=== PATIENT | male | born 1955 | race Caucasian/White ===

== ENCOUNTER 2021-02-05 08:01 | Day surgery (SDC) | payer OTHER, MEDICAID ==
[~2021-02-05] VITALS: Ht 180.3 cm; Wt 94.3 kg
[~2021-02-05 08:01] MED LIST: AML5T PO; ASPI81CH59 PO; ATOR10TA52 PO; GLIP5TAB12 PO; LISI-711 PO; METF-372 PO; PIO30T GT
[2021-02-05] MEDS ORDERED: LIDOCAINE 2%HCL (LOCAL ANESTH.) INJ 20ML MDV ONE (09:05)
[2021-02-05] MEDS ORDERED: IODIXANOL 320MG/ML 100ML BTL IV ONE (09:05)
[2021-02-05] MEDS ORDERED: MIDAZOLAM HCL 2MG/2ML 2ml VIAL (1mg/ml) ONE (09:09)
[2021-02-05] MEDS ORDERED: fentaNYL CITRATE 100 MCG/2 ML VL ONE (09:09)
[2021-02-05] MEDS ORDERED: SODIUM CHL 0.9% 50 ML ONE (09:09)
[2021-02-05] MEDS ORDERED: ANGIOMAX 250 MG VIAL IV ONE (09:09)
[2021-02-05] MEDS ORDERED: HYDROmorphone HCL 2 MG/ML VL ONE (10:19)
[2021-02-05] MEDS ORDERED: HYDROcodone-ACET 5/325MG TAB PO PRN (11:00)
[2021-02-05] MEDS ORDERED: ONDANSETRON HCL 4 MG/2 ML VIAL IV PRN (11:00)
[2021-02-05] MEDS ORDERED: ACETAMINOPHEN 500 MG TAB PO PRN (11:00)
== END 2021-02-05 14:29 | disposition home or self-care (01) ==
LOC: CATH 08:01
PROVIDERS: ATTEND Internal Medicine
DX: I70.212 Atherosclerosis of native arteries of extremities with intermittent claudication, left leg (principal); I10 Essential (primary) hypertension; E78.5 Hyperlipidemia, unspecified; F17.210 Nicotine dependence, cigarettes, uncomplicated; E11.9 Type 2 diabetes mellitus without complications; Z79.82 Long term (current) use of aspirin; Z20.822 Contact with and (suspected) exposure to COVID-19; Z98.890 Other specified postprocedural states; Z79.899 Other long term (current) drug therapy; Z68.29 Body mass index [BMI] 29.0-29.9, adult
CPT/HCPCS: 37228; 75716; C1725; C1760; C1769; C1887; C1894; J0583; J1170; J1644; J2250; J3010; J7030; Q9967; U0003; 99152; 99153

== ENCOUNTER 2022-05-27 07:41 | Day surgery (SDC) | payer OTHER, MEDICAID ==
[~2022-05-27] VITALS: Ht 180.3 cm; Wt 94.3 kg
[~2022-05-27 07:41] MED LIST changes: +ASPI-543 PO; -ASPI81CH59 PO; +EMPA1TAB3 PO; +FURO20TA3 PO; +GABA300C10 PO; -PIO30T GT; +PIO30T PO; +RIVA2.5T PO
[2022-05-27] MEDS ORDERED: MIDAZOLAM HCL 2MG/2ML 2ml VIAL (1mg/ml) IV ONE (08:15)
[2022-05-27] MEDS ORDERED: fentaNYL CITRATE 100 MCG/2 ML VL IV ONE (08:15)
[2022-05-27] MEDS ORDERED: LIDOCAINE VISCOUS 2% 15ML UD MT ONE (08:15)
[2022-05-27 09:14] VITALS: BP 102/59
[2022-05-27 09:29] VITALS: BP 91/47
[2022-05-27 09:44] VITALS: BP 106/58
[2022-05-27 09:59] VITALS: BP 101/59
[2022-05-27 10:10] VITALS: BP 104/67
== END 2022-05-27 10:15 | disposition home or self-care (01) ==
LOC: CATH 07:41
PROVIDERS: ATTEND Internal Medicine
DX: I35.0 Nonrheumatic aortic (valve) stenosis (principal); R01.1 Cardiac murmur, unspecified; I51.89 Other ill-defined heart diseases; Z20.822 Contact with and (suspected) exposure to COVID-19
CPT/HCPCS: 93005; 93312; J2250; J3010; U0003; 99152

== ENCOUNTER 2022-07-27 01:59 | Emergency (ER) | payer OTHER, MEDICAID ==
[~2022-07-27] VITALS: Ht 180.3 cm; Wt 95.0 kg
[2022-07-27 02:13] VITALS: BP 120/65
[2022-07-27 02:59] LABS: Basophils # (auto) 0 10 ^3/uL (0-0.2); Basophils % (auto) 0.2 % (0.0-2.0); Eosinophils # (auto) 0.1 10 ^3/uL (0-0.8); Eosinophils % (auto) 1.4 % (0.0-7.0); Hematocrit 29.2 % (41.0-53.0); Hemoglobin 9.9 g/dL (13.5-17.5); Lymphocytes % (auto) 30.1 % (10.0-50.0); Mean Corpuscular Hemoglobin 31.1 pg (28.0-32.0); Mean Corpuscular Volume 91.7 fL (80.0-100.0); Monocytes # (auto) 0.4 10 ^3/uL (0-1.3); Monocytes % (auto) 6.6 % (0.0-12.0); Neutrophils # (auto) 4.1 10 ^3/uL (1.6-8.6); Neutrophils % (auto) 61.7 % (37.0-80.0); Nucleated Red Blood Cells % 0.1 %; Red Blood Cells 3.18 10^6/uL (4.5-5.90); Red Cell Distribution Width 13.4 % (11.8-14.3); White Blood Cell 6.7 10^3/uL (4.4-10.8)
[2022-07-27] MEDS ORDERED: LIDOCAINE W/ EPINEPHRINE 2% INJ 20ML VIAL IJ ONE (03:00)
[2022-07-27 03:17] LABS: Albumin 2.4 g/dL (3.4-5.0); Calcium 6.8 mg/dL (8.5-10.1); Potassium 3.3 mmol/L (3.5-5.1)
[2022-07-27 03:18] LABS: BUN/Creatinine Ratio 27.5
[2022-07-27 03:21] LABS: Bilirubin, Total 0.2 mg/dL (0.2-1.0); Total Protein 4.9 g/dL (6.4-8.2)
[2022-07-27] MEDS ORDERED: cefTRIAXone SOD 1,000 MG VL IM ONE (04:45)
[2022-07-27] MEDS ORDERED: POTASSIUM EFFERVESENT TAB 25 MEQ PO ONE (04:45)
== END 2022-07-27 06:43 | disposition home or self-care (01) ==
LOC: ER 01:59 → EDBD 01:59 → ER 05:30
DX: I83.891 Varicose veins of right lower extremity with other complications (principal); E87.6 Hypokalemia; E86.0 Dehydration; R79.89 Other specified abnormal findings of blood chemistry; Z20.822 Contact with and (suspected) exposure to COVID-19
CPT/HCPCS: 36415; 80053; 85025; 86850; 86900; 86901; 96372; 99283; J0696

== ENCOUNTER 2024-10-13 22:02 | Inpatient (IN) | payer OTHER, MEDICAID ==
[~2024-10-13] VITALS: Ht 180.3 cm; Wt 92.6 kg
[~2024-10-13 22:02] MED LIST changes: +GABA-1250 PO; -GABA300C10 PO; -GLIP5TAB12 PO; +GLIP5TAB21 PO; +TRAM-297 PO
[2024-10-13 23:23] LABS: Urine Bacteria None Seen /hpf (None Seen)
[2024-10-13 23:42] LABS: Urine Blood Negative /uL (Negative); Urine Clarity Clear (Clear); Urine Color Yellow (Yellow); Urine Hyaline Cast FEW /lpf (0 - 2); Urine Protein, UAD TRACE (Negative); Urine Specific Gravity 1.032 (1.001-1.035); Urine Squamous Epithelial Cell None Seen /hpf (<5); Urine Urobilinogen Normal (Negative); Urine WBC < 1 /HPF (0-3); Urine pH 5.5 (5.0-9.0)
[2024-10-13 23:46] LABS: Basophils # (auto) 0 10 ^3/uL (0-0.2); Basophils % (auto) 0.1 % (0.0-2.0); Eosinophils # (auto) 0 10 ^3/uL (0-0.8); Eosinophils % (auto) 0.4 % (0.0-7.0); Hematocrit 44.3 % (41.0-53.0); Hemoglobin 15.1 g/dL (13.5-17.5); Lymphocytes # (auto) 0.9 10 ^3/uL (0.4-5.4); Lymphocytes % (auto) 11.7 % (10.0-50.0); Mean Corpuscular Hemoglobin 31.3 pg (28.0-32.0); Mean Corpuscular Hgb Conc. 34.1 g/dL (32.0-36.0); Mean Corpuscular Volume 91.6 fL (80.0-100.0); Monocytes # (auto) 0.5 10 ^3/uL (0-1.3); Monocytes % (auto) 5.7 % (0.0-12.0); Neutrophils # (auto) 6.7 10 ^3/uL (1.6-8.6); Neutrophils % (auto) 82.1 % (37.0-80.0); Nucleated Red Blood Cells % 0.1 %; Platelet Count (auto) 196 10^3/uL (140-450); Red Blood Cells 4.83 10^6/uL (4.5-5.90); Red Cell Distribution Width 13.9 % (11.8-14.3); White Blood Cell 8.1 10^3/uL (4.4-10.8)
--- NOTE | 2024-10-13 23:50 | DVH ---
CHEST RADIOGRAPH REASON FOR EXAM: epigastric pain COMPARISON: None TECHNIQUE: One view of the chest is provided FINDINGS: The cardiomediastinal silhouette is within normal limits for technique. There is no focal a irspace disease. There is no significant pleural effusion. No acute bony abnormality is identified. IMPRESSION: No radiographic evidence of acute cardiopulmonary process.
[2024-10-14 00:01] LABS: Alanine Aminotransferase 15 U/L (7-40); Alkaline Phosphatase 97 U/L (46-116); Anion Gap 7 (5-15); Aspartate Aminotransferase 15 U/L (13-40); BUN/Creatinine Ratio 12.7 (10.0-20.0); Blood Urea Nitrogen 19 mg/dL (9-23); Carbon Dioxide 28 mmol/L (20-31); Chloride 102 mmol/L (98-107); Sodium 137 mmol/L (136-145)
[2024-10-14 00:02] LABS: Albumin 5.2 g/dL (3.2-4.8); Bilirubin, Total 0.4 mg/dL (0.2-1.0); Calcium 10.4 mg/dL (8.7-10.4); Glucose 129 mg/dL (74-106); Potassium 5.3 mmol/L (3.5-5.1); Total Protein 8.4 g/dL (5.7-8.2)
--- NOTE | 2024-10-14 00:15 | DVH ---
Exam: CT CT AB PEL WO CON-NO ORAL OR IV History: abdominal pain Comparison Study: None Technique: Multidetector spiral CT of the abdomen was performed from lung bases to pubic symphysis. I maging was performed without IV contrast. Axial, coronal and sagittal multiplanar reformats were obta ined from the axial data set by the technologist. Radiation Dose : 1. Abdomen/Pelvis: CTDIvol 17 mGy, DLP 986 mGy*cm. Findings: Evaluation of solid organs is limited due to lack of intravenous contrast use. Lung Bases: No acute or significant lung base finding. Normal heart size. No pleural or pericardial effusion. Liver: The liver is normal in size. No focal lesions. Gallbladder and Biliary Tree: Unremarkable Spleen: Unremarkable Pancreas: The pancreas is grossly normal in appearance. Adrenal Glands: Unremarkable Kidneys: Kidneys are grossly normal without calculi or hydronephrosis. Bladder: Grossly unremarkable for degree of distention. Bowel: The stomach is grossly normal in appearance. Small bowel and colon are normal in caliber and d istribution. The appendix is not visualized; however, no secondary findings of acute appendicitis fabiola ntified. Severe sigmoid diverticulosis without evidence of diverticulitis. Ascites: Absent Lymphadenopathy: No mesenteric, retroperitoneal or periportal lymphadenopathy. Abdominal Wall and Mesentery: Unremarkable. Vasculature: The visualized abdominal aorta is normal in size and caliber. Evaluation of abdominal a nd pelvic vessels is limited due to lack of intravenous contrast. Pelvic Organs: Mild prostatomegaly. Musculoskeletal: No aggressive focal bony lesions, acute fractures or dislocation. IMPRESSION: No acute abdominal or pelvic findings on this noncontrast evaluation. Sigmoid colon diverticulosis wi thout evidence of diverticulitis. Multiple nondistended fluid-filled loops of small bowel which are n onspecific but can be seen with viral enteritis. END IMPRESSION:
--- NOTE | 2024-10-14 00:24 | ED.PDOC ---
History of Present Illness HPI Comments See 9-year-old man presents with 2 days of diffuse abdominal pain associated with nausea vomiting and generally feeling unwell. Patient reports his pain is 6/10 achy in nature and not associated with eating. Patient did have a watery bowel movement this morning. Chief Complaint: Abdominal Pain Time Seen by MD: 22:17 Allergies: Coded Allergies: NO KNOWN ALLERGIES (Unverified , 05/24/22) Home Meds Active Scripts Tramadol Hcl (Ultram) 50 Mg Tab, 1 TAB PO BID, #20 TAB Prov:JULIO CESAR YOUSSEF 11/24/21 Reported Medications Pioglitazone Hydrochloride (ACTOS TABLET) 30 Mg Tb, 15 MG PO for DIABETES, TAB 05/24/22 Furosemide (Furosemide) 20 Mg Tab, 20 MG PO DAILY for EDEMA, MG 05/24/22 Gabapentin (Gabapentin) 300 Mg Cap, 300 MG PO HS for NEUROPATHY, MG 05/24/22 Empagliflozin (Jardiance) 25 Mg Tab, 25 MG PO DAILY for DIABETES, TAB 05/24/22 Aspirin (Aspir-Low) 81 Mg Tab, 81 MG PO DAILY for PVD, MG 05/24/22 Rivaroxaban (Xarelto) 2.5 Mg Tab, 2.5 MG PO BID for PVD, TAB 05/24/22 Amlodipine Besylate (NORVASC TABLET) 5 Mg Tb, 1 TAB PO DAILY, TAB 02/02/21 Lisinopril (Zestril) 20 Mg Tab, 10 MG PO DAILY, TAB 02/02/21 Atorvastatin Calcium (ATORVASTATIN CALCIUM) 10 Mg Tab, 10 MG PO DAILY, TAB 02/02/21 Glipizide (Glipizide) 5 Mg Tab, 1 TAB PO BID, TAB 02/02/21 Metformin Hydrochloride (Metformin Hcl) 1,000 Mg Tab, 1000 MG PO BID, TAB 02/02/21 Mode of Arrival: Ambulatory Past Medical History PAST MEDICAL HISTORY: AFIB, DM Surgical History: Denies all surgeries Family History Family History: Unknown Social History Smoker: Quit Less Than 1 Year, Cigarettes Alcohol: Occasionally Drugs: Denies Drug Use All Other Systems: Reviewed and Negative Physical Exam General Appearance: Normal HEENT: Pharynx Normal Neck: Normal Inspection Respiratory: No Respiratory Distress Cardiovascular: No Edema Breast Exam: Normal Gastrointestinal: Non Tender Genitalia: Deferred Pelvic: Deferred Rectal: Deferred Extremities: No pedal edema Neurologic: No Motor Deficits Cerebellar Function: NOT DONE Reflexes: NOT DONE Skin: Normal Color Lymphatic: NOT DONE Was a procedure done? Was a procedure done?: No Differential Dx Considerations may include: Gastroenteritis, colitis, enteritis, appendicitis, cholecystitis X-Ray, Labs, Meds, VS Vital Signs Date Time Temp Pulse Resp B/P (MAP) Pulse Ox O2 Delivery O2 Flow Rate FiO2 10/13/24 23:03 97.3 65 16 140/61 (87) 98 97.3 Lab Test 10/13/24 23:34 10/13/24 23:20 Range/Units White Blood Count 8.1 4.4-10.8 10^3/uL Red Blood Count 4.83 4.5-5.90 10^6/uL Hemoglobin 15.1 13.5-17.5 g/dL Hematocrit 44.3 41.0-53.0 % Mean Corpuscular Volume 91.6 80.0-100.0 fL Mean Corpuscular Hemoglobin 31.3 28.0-32.0 pg Mean Corpuscular Hemoglobin Concent 34.1 32.0-36.0 g/dL Red Cell Distribution Width 13.9 11.8-14.3 % Platelet Count 196 140-450 10^3/uL Mean Platelet Volume 8.7 6.9-10.8 fL Neutrophils (%) (Auto) 82.1 H 37.0-80.0 % Lymphocytes (%) (Auto) 11.7 10.0-50.0 % Monocytes (%) (Auto) 5.7 0.0-12.0 % Eosinophils (%) (Auto) 0.4 0.0-7.0 % Basophils (%) (Auto) 0.1 0.0-2.0 % Neutrophils # (Auto) 6.7 1.6-8.6 10 ^3/uL Lymphocytes # (Auto) 0.9 0.4-5.4 10 ^3/uL Monocytes # (Auto) 0.5 0-1.3 10 ^3/uL Eosinophils # (Auto) 0 0-0.8 10 ^3/uL Basophils # (Auto) 0 0-0.2 10 ^3/uL Nucleated Red Blood Cells 0.1 % Sodium Level 137 136-145 mmol/L Potassium Level 5.3 H 3.5-5.1 mmol/L Chloride Level 102 98-107 mmol/L Carbon Dioxide Level 28 20-31 mmol/L Anion Gap 7 5-15 Blood Urea Nitrogen 19 9-23 mg/dL Creatinine 1.50 H 0.700-1.30 mg/dL Glomerular Filtration Rate Calc 50 >90 mL/min BUN/Creatinine Ratio 12.7 10.0-20.0 Serum Glucose 129 H 74-106 mg/dL Calcium Level 10.4 8.7-10.4 mg/dL Total Bilirubin 0.4 0.2-1.0 mg/dL Aspartate Amino Transferase (AST) 15 13-40 U/L Alanine Aminotransferase (ALT) 15 7-40 U/L Alkaline Phosphatase 97 46-116 U/L Troponin I High Sensitivity 5 </=54 ng/L Total Protein 8.4 H 5.7-8.2 g/dL Albumin 5.2 H 3.2-4.8 g/dL Urine Color Yellow Yellow Urine Clarity Clear Clear Urine pH 5.5 5.0-9.0 Urine Specific [place] 1.032 1.001-1.035 Urine Protein Trace H Negative Urine Ketones Negative Negative Urine Blood Negative Negative /uL Urine Nitrite Negative Negative Urine Bilirubin Negative Negative Urine Urobilinogen Normal Negative mg/dL Urine Leukocyte Esterase Negative Negative /uL Urine RBC <1 0 - 3 /hpf Urine Microscopic WBC < 1 0-3 /HPF Urine Squamous Epithelial Cells None seen <5 /hpf Urine Bacteria None seen None Seen /hpf Urine Hyaline Casts Few 0 - 2 /lpf Urine Glucose 4+ H Normal mg/dL Time of 1ST Reevaluation: 00:23 Reevaluation 1ST: Improved Patient Education/Counseling: Diagnosis, Treatment Family Education/Counseling: No Family Present Departure 1 Departure Time of Disposition: 00:23 (Patient presented with abdominal pain that was concerning for possible appendicits, gastritis, cholecystitis, colitis, gastroenteritis, sbo, or orther possible surgical emergency. Data: 1. I ordered and reviewed the result of at least 3 labs including a CBC, BMP, and Urinalysis. 2. I independently interpreted the following tests: CT Abdoment and Pelvis is concerning for colitis .Risk:This patient has a high risk of morbidity due to further diagnostic testing or treatment and may suffer from an acute abdominal process disorder. Workup reveals likely enteritis and patient should be admitted for further workup. and possible expert consultation. ) Impression: Primary Impression: Enteritis Additional Impression: Intractable abdominal pain Disposition: 09 ADMITTED INPATIENT Admit to: Med Surg Condition: Serious Critical Care Note Critical Care Time?: Yes Critical care comment: Intractable abdominal pain Authorized and Performed by: Negar Perez MD Total critical care time: Approximately 34 minutes Due to a high probability of clinically significant, life threatening deterioration, the patient required my highest level of preparedness to intervene emergently and I personally spent this critical care time directly and personally managing the patient. This critical care time included obtaining a history; examining the patient; pulse oximetry; ordering and review of studies; arranging urgent treatment with development of a management plan; evaluation of patient's response to treatment; frequent reassessment; and, discussions with other providers. This critical care time was performed to assess and manage the high probability of imminent, life-threatening deterioration that could result in multi-organ failure. It was exclusive of separately billable procedures and treating other patients and teaching time. Please see my other sections and the rest of the note for further information on patient assessment and treatment. Stability Stability form required: No Heart Score Heart Score: Heart Score Response (Comments) Value History N/A 0 EKG N/A 0 Age N/A 0 Risk Factors N/A 0 Troponin N/A 0 Total 0 NEGAR PEREZ MD Oct 14, 2024 00:24
[2024-10-14] MEDS: SODIUM CHLORIDE 0.9% 1,000 ML IV ONE (00:30)
[2024-10-14] MEDS: SODIUM CHLORIDE 0.9% 1,000 ML IV SCH (01:15)
[2024-10-14] MEDS: InsuLIN REG 1unit/0.01ml Soln (100units/ml) IV ONE (01:15)
[2024-10-14] MEDS ORDERED: ACETAMINOPHEN 325 MG TAB PO PRN (01:15)
--- NOTE | 2024-10-14 01:32 | DVHHPRES ---
History of Present Illness Resident Creating Document: LAYTON TERRELL History of Present Illness This is a 69-year-old male with past medical history of type 2 diabetes mellitus, hypertension, TAVR 4 months ago, dyslipidemia who presented to the ED with chief complaint of abdominal tenderness. The patient states that has been having abdominal pain for the last week associated with nausea and diarrhea (last episode two days ago). The patient describes a dull periumbilical pain localized in the periumbilical and epigastric region with no specific pattern of radiation. The patient is currently rates the pain as a 5/10 on the pain scale that varies in intensity. The patient also reported seeing minimal blood in the stools three weeks ago. The patient denies chest pain, shortness of breath, fever/chills or any other associated symptoms. Initial labs showed mild hyperkalemia, creatinine was elevated at 1.58 and BUN 19. Urinalysis came back negative and CT scan of the abdomen showed possible viral enteritis. We will start the patient on IV fluids, sliding scale insulin, treatment for hyperkalemia and we will admit the patient for further assessment and management. Past medical history: Type 2 diabetes mellitus, hypertension, TAVR four months ago, dyslipidemia Home medications: Lisinopril 20 mg daily, amlodipine 5 mg daily, aspirin 81 mg daily gabapentin 300 mg daily, Plavix 75 mg daily, pioglitazone 30 mg daily, glipizide 5 mg daily, Jardiance 25 mg daily, metformin 1000 mg b.i.d., Prozac 10 mg daily. Social history: Reports quitting smoking long time ago, occasional alcohol and denies drug consumption Surgical history: TAVR 4 months ago Cardiovascular: HTN, hyperipidemia, Other (TAVR four months ago) Endocrine: Diabetes Past Surgical History: Other (TAVR) Family History: None Smoke: Quit ALCOHOL: none Drugs: None Lives: with Family Domestic Violence: Neg Review of Systems Constitutional: No: Fever, Chills, Sweats, Weakness, Malaise, Other Eyes: No: Pain, Vision change, Conjunctivae inflammation, Eyelid inflammation, Other, Redness ENT: No: Ear pain, Ear discharge, Nose pain, Nose discharge, Nose congestion, Mouth pain, Mouth swelling, Throat pain, Throat swelling, Other Respiratory: No: Cough, Dry, Shortness of breath, SOB with excertion, Wheezing, Hemoptysis, Pleuritic Pain, Sputum, Wheezing, Other Cardiovascular: No: Chest Pain, Palpitations, Orthopnea, Paroxysmal Noc. Dys pnea, Edema, Lt Headedness, Other Gastrointestinal: Nausea, Abdominal Pain; No: Vomiting, Diarrhea, Constipation, Melena, Hematochezia, Other Genitourinary: No Dysuria, No Frequency, No Incontinence, No Hematuria, No Retention, No Other Musculoskeletal: No: other, neck pain, shoulder pain, arm pain, back pain, hand pain, leg pain, foot pain Skin: No: Rash, Lesions, Jaundice, Bruising, Other Neurological: No: Weakness, Numbness, Incoordination, Change in speech, Confusion, Seizures, Other Allergies: Coded Allergies: NO KNOWN ALLERGIES (Unverified , 05/24/22) Medications Current Medications Medications Dose Ordered Sig/Rajat Route Start Time Stop Time Status Last Admin Dose Admin Sodium Chloride 1,000 ml @ 60 mls/hr [id number] IV 10/14/24 01:15 UNV Acetaminophen 650 mg Q6HP PRN PO 10/14/24 01:15 UNV Enoxaparin Sodium 40 mg DAILY SC 10/14/24 10:00 UNV Diagnostic Test (Pha) 1 strip ACHS 10/14/24 07:00 UNV Insulin Human Regular ACHS SC 10/14/24 07:00 UNV Dextrose 50 ml UD PRN IV 10/14/24 01:15 UNV Exam Vital Signs Vital Signs Date Time Temp Pulse Resp B/P (MAP) Pulse Ox O2 Delivery O2 Flow Rate FiO2 10/13/24 23:03 97.3 65 16 140/61 (87) 98 97.3 General Appearance: Alert, Oriented X3, Cooperative, No acute distress HEENT: Atraumatic, PERRLA, EOMI, Mucous membr. moist/pink Respiratory: Clear to auscultation, Normal air movement Cardiovascular: Regular rate, Normal S1, Normal S2, No murmurs Abdominal: Normal bowel sounds, Soft, Other (THERE IS TENDERNESS TO PALPATION AT THE PERIUMBILICAL AND EPIGASTRIC REGION) Extremities: No clubbing, No cyanosis, No edema, Normal pulses, Other (There is blackish discoloration of bilateral lower extremities with a associated scales and dry skin.) Skin: No rashes (There is blackish discoloration of bilateral lower extremities with a associated scales and dry skin.) Neuro: Normal gait, Normal speech, Strength at 5/5 X4 ext, Normal tone, Sensation intact, Cranial nerves 3-12 NL, Reflexes 2+ Psych/Mental Status: Mental status NL, Mood NL Labs/Xrays Labs Test 10/13/24 23:34 10/13/24 23:20 Range/Units White Blood Count 8.1 4.4-10.8 10^3/uL Red Blood Count 4.83 4.5-5.90 10^6/uL Hemoglobin 15.1 13.5-17.5 g/dL Hematocrit 44.3 41.0-53.0 % Mean Corpuscular Volume 91.6 80.0-100.0 fL Mean Corpuscular Hemoglobin 31.3 28.0-32.0 pg Mean Corpuscular Hemoglobin Concent 34.1 32.0-36.0 g/dL Red Cell Distribution Width 13.9 11.8-14.3 % Platelet Count 196 140-450 10^3/uL Mean Platelet Volume 8.7 6.9-10.8 fL Neutrophils (%) (Auto) 82.1 H 37.0-80.0 % Lymphocytes (%) (Auto) 11.7 10.0-50.0 % Monocytes (%) (Auto) 5.7 0.0-12.0 % Eosinophils (%) (Auto) 0.4 0.0-7.0 % Basophils (%) (Auto) 0.1 0.0-2.0 % Neutrophils # (Auto) 6.7 1.6-8.6 10 ^3/uL Lymphocytes # (Auto) 0.9 0.4-5.4 10 ^3/uL Monocytes # (Auto) 0.5 0-1.3 10 ^3/uL Eosinophils # (Auto) 0 0-0.8 10 ^3/uL Basophils # (Auto) 0 0-0.2 10 ^3/uL Nucleated Red Blood Cells 0.1 % Sodium Level 137 136-145 mmol/L Potassium Level 5.3 H 3.5-5.1 mmol/L Chloride Level 102 98-107 mmol/L Carbon Dioxide Level 28 20-31 mmol/L Anion Gap 7 5-15 Blood Urea Nitrogen 19 9-23 mg/dL Creatinine 1.50 H 0.700-1.30 mg/dL Glomerular Filtration Rate Calc 50 >90 mL/min BUN/Creatinine Ratio 12.7 10.0-20.0 Serum Glucose 129 H 74-106 mg/dL Calcium Level 10.4 8.7-10.4 mg/dL Total Bilirubin 0.4 0.2-1.0 mg/dL Aspartate Amino Transferase (AST) 15 13-40 U/L Alanine Aminotransferase (ALT) 15 7-40 U/L Alkaline Phosphatase 97 46-116 U/L Troponin I High Sensitivity 5 </=54 ng/L Total Protein 8.4 H 5.7-8.2 g/dL Albumin 5.2 H 3.2-4.8 g/dL Urine Color Yellow Yellow Urine Clarity Clear Clear Urine pH 5.5 5.0-9.0 Urine Specific [place] 1.032 1.001-1.035 Urine Protein Trace H Negative Urine Ketones Negative Negative Urine Blood Negative Negative /uL Urine Nitrite Negative Negative Urine Bilirubin Negative Negative Urine Urobilinogen Normal Negative mg/dL Urine Leukocyte Esterase Negative Negative /uL Urine RBC <1 0 - 3 /hpf Urine Microscopic WBC < 1 0-3 /HPF Urine Squamous Epithelial Cells None seen <5 /hpf Urine Bacteria None seen None Seen /hpf Urine Hyaline Casts Few 0 - 2 /lpf Urine Glucose 4+ H Normal mg/dL Assessment/Plan Assessment/Plan Assessment/plan Acute abdominal tenderness likely due to viral gastroenteritis HALLIE likely due to vasomotor nephropathy Acute Hyperkalemia Non infected diabetic ulcer on left foot Primary hypertension Type 2 diabetes mellitus Dyslipidemia History of TAVR four months ago Plan -CT of the abdomen showed Sigmoid colon diverticulosis without evidence of diverticulitis. Multiple nondistended fluid-filled loops of small bowel which ar e nonspecific but can be seen with viral enteritis. -IV bolus of NS 0.9% and continue maintenance fluids at 60cc/hr -Restart aspirin and clopidogrel -Restart amlodipine 5mg daily Restart gabapentin 300mg daily -Start mild sliding scale insulin, monitor BG closely -Acetaminophen for symptomatic modulation -Hyperkalemia protocol, repeat potassium levels -Start atorvastatin 40mg daily -Wound consult, for non infected diabetic ulcer of the left foot Goals of care discussed with the patient for >35min, FULL CODE Plan discussed with Dr. Guevara Plan discussed with: Patient My Orders Orders - LAYTON TERRELL RESIDENT Procedure Category Date Status Time Admit ADMIT 10/14/24 Transmitted 01:06 Code Status CODE 10/14/24 Transmitted 01:06 Vital Signs [facility] 10/14/24 In Process 01:06 Review Orders With [facility] 10/14/24 In Process Adm. 01:06 Encourage Activity As [facility] 10/14/24 In Process Tolerate 01:06 Sodium Chloride 0.9% [facility] 10/14/24 Logged 01:15 Acetaminophen Tablet [facility] 10/14/24 Logged (Tylenol Tablet) 01:15 Notify Of Changes [facility] 10/14/24 In Process From Base 01:06 Advance Directive [facility] 10/14/24 In Process 01:06 Complete Blood Count LAB 10/15/24 Verified 04:00 Lipid Panel LAB 10/14/24 In Process 01:06 Patient Condition ORDERS 10/14/24 Transmitted 01:06 Allergies [facility] 10/14/24 In Process 01:06 Drug Screen LAB 10/14/24 Logged 01:06 Hemoglobin A1c LAB 10/14/24 In Process 01:06 Enoxaparin Sodium PHA 10/14/24 Logged (Lovenox) 10:00 Glucose Blood PHA 10/14/24 Logged (Accu-Chek Comfort 07:00 Insulin R (Human) PHA 10/14/24 Logged (Insulin R) 07:00 Dextrose 50% Syringe PHA 10/14/24 Logged 01:15 Insulin R (Human) PHA 10/14/24 Logged (Insulin R) 01:15 Sodium Bicarb PHA 10/14/24 Logged 50meq/50ml Syr 01:15 Furosemide Injection PHA 10/14/24 Logged (Lasix Injection) 01:15 Stool Occult Blood LAB 10/14/24 Logged 01:14 Stool Wbc LAB 10/14/24 Logged 01:14 Stool Bacterial JACOBO 10/14/24 Logged Culture 01:14 Lactic Acid W/ Reflex LAB 10/14/24 Transmitted Order 01:15 Basic Metabolic Panel LAB 10/14/24 Transmitted 04:00 Date of Service: Oct 14, 2024 Billing Provider: SHELLY GUEVARA MD Common Visit Codes: 04282-EQEATZU INP/OBS CARE (HIGH) Secondary Visit Codes: 36896-[id number] CARE PLAN 30 MINUTES LAYTON TERRELL RESIDENT Oct 14, 2024 01:32
[2024-10-14 01:56] VITALS: PULSE 61; O2SAT 95
[2024-10-14] MEDS: FUROSEMIDE 20 MG/2 ML VIAL IV ONE (02:08)
[2024-10-14] MEDS: ONDANSETRON HCL 4 MG/2 ML VIAL IV ONE (02:08)
[2024-10-14] MEDS: ACETAMINOPHEN 325 MG TAB PO ONE (02:09)
[2024-10-14] MEDS: SODIUM BICARB 8.4% 50Meq/50ml SYR INJ IV ONE (02:09)
[2024-10-14 02:20] LABS: Triglycerides 115 mg/dL (< 150)
[2024-10-14 02:21] LABS: LDL Cholesterol 79 mg/dL (< 100)
[2024-10-14 02:22] LABS: Cholesterol 150 mg/dL (< 200); HDL Cholesterol 54 mg/dL (40-59)
[2024-10-14] MEDS: DEXTROSE (50%) 50ML SYRG IV PRN (02:39)
[2024-10-14] MEDS: DEXTROSE (50%) 50ML SYRG IV ONE (03:28)
[2024-10-14 04:47] LABS: Amphetamine Screen, Urine Neg (NEGATIVE); Barbiturate Scree,Urine Neg (NEGATIVE); Benzodiazephine Screen, Urine Neg (NEGATIVE); Cannabinoid Screen, Urine Pos (NEGATIVE); Cocaine Screen, Urine Neg (NEGATIVE); Opiate Scree,Urine Neg (NEGATIVE); Phencyclidine Screen, Urine Neg (NEGATIVE)
[2024-10-14 06:18] LABS: Anion Gap 9 (5-15); Calcium 9.9 mg/dL (8.7-10.4); Carbon Dioxide 26 mmol/L (20-31); Potassium 4.1 mmol/L (3.5-5.1); Sodium 143 mmol/L (136-145)
[2024-10-14 06:23] LABS: Chloride 108 mmol/L (98-107)
[2024-10-14 06:24] LABS: BUN/Creatinine Ratio 16.3 (10.0-20.0); Blood Urea Nitrogen 20 mg/dL (9-23); Glucose 76 mg/dL (74-106)
[2024-10-14] MEDS: InsuLIN REG 1unit/0.01ml Soln (100units/ml) SC SCH (06:24)
[2024-10-14] MEDS: ACCU-CHEK COMFORT CURVE STRIP VI SCH (06:25)
--- NOTE | 2024-10-14 06:54 | DVHPNRES ---
Progress Note Date Seen: Oct 14, 2024 Resident Creating Document: SORAYA RAMIREZ RESIDENT Medical Necessity Reason Pt with a Central, PICC or Fol: No Subjective Review of Systems This is a 69-year-old male with past medical history of type 2 diabetes mellitus, hypertension, TAVR 4 months ago, dyslipidemia who presented to the ED with chief complaint of abdominal tenderness. The patient states that has been having abdominal pain for the last week associated with nausea and diarrhea (last episode two days ago). The patient describes a dull periumbilical pain localized in the periumbilical and epigastric region with no specific pattern of radiation. The patient is currently rates the pain as a 5/10 on the pain scale that varies in intensity. The patient also reported seeing minimal blood in the stools three weeks ago. The patient denies chest pain, shortness of breath, fever/chills or any other associated symptoms. Initial labs showed mild hyperkalemia, creatinine was elevated at 1.58 and BUN 19. Urinalysis came back negative and CT scan of the abdomen showed possible viral enteritis. We will start the patient on IV fluids, sliding scale insulin, treatment for hyperkalemia and we will admit the patient for further assessment and management. Past medical history: Type 2 diabetes mellitus, hypertension, TAVR four months ago, dyslipidemia Home medications: Lisinopril 20 mg daily, amlodipine 5 mg daily, aspirin 81 mg daily gabapentin 300 mg daily, Plavix 75 mg daily, pioglitazone 30 mg daily, glipizide 5 mg daily, Jardiance 25 mg daily, metformin 1000 mg b.i.d., Prozac 10 mg daily. Social history: Reports quitting smoking long time ago, occasional alcohol and denies drug consumption Surgical history: TAVR 4 months ago Objective vital signs Vital Sign Date Time Temp Pulse Resp B/P (MAP) Pulse Ox O2 Delivery O2 Flow Rate FiO2 10/14/24 05:27 64 19 144/78 (100) 95 10/14/24 02:38 98.9 98.9 10/14/24 01:56 Room Air* 0 21 Total Intake and Output 10/13/24 10/13/24 10/14/24 15:00 23:00 07:00 Intake Total 1120 ml Balance 1120 ml medications Current Medications Medications Dose Ordered Sig/Rajat Route Start Time Stop Time Status Last Admin Dose Admin Sodium Chloride 1,000 ml @ 60 mls/hr [id number] IV 10/14/24 01:15 10/14/24 01:15 60 MLS/HR Acetaminophen 650 mg Q6HP PRN PO 10/14/24 01:15 Enoxaparin Sodium 40 mg DAILY SC 10/14/24 10:00 Diagnostic Test (Pha) 1 strip ACHS 10/14/24 07:00 10/14/24 06:25 1 STRIP Insulin Human Regular ACHS SC 10/14/24 07:00 Dextrose 50 ml UD PRN IV 10/14/24 01:15 10/14/24 02:39 50 ML Amlodipine Besylate 5 mg DAILY PO 10/14/24 10:00 Aspirin 81 mg DAILY PO 10/14/24 10:00 Clopidogrel Bisulfate 75 mg DAILY PO 10/14/24 10:00 Examination General Appearance: Alert, Oriented X3, Cooperative, No acute distress HEENT: Atraumatic, PERRLA, EOMI, Mucous membr. moist/pink Respiratory: Clear to auscultation, Normal air movement Cardiovascular: Regular rate, Normal S1, Normal S2, No murmurs Abdominal: Normal bowel sounds, Soft, Other (THERE IS TENDERNESS TO PALPATION AT THE PERIUMBILICAL AND EPIGASTRIC REGION) Extremities: No clubbing, No cyanosis, No edema, Normal pulses, Other (There is blackish discoloration of bilateral lower extremities with a associated scales and dry skin.) Skin: No rashes (There is blackish discoloration of bilateral lower extremities with a associated scales and dry skin.) Neuro: Normal gait, Normal speech, Strength at 5/5 X4 ext, Normal tone, Sensation intact, Cranial nerves 3-12 NL, Reflexes 2+ Psych/Mental Status: Mental status NL, Mood NL laboratory and microbiology Laboratory Tests 10/14/24 05:27 10/13/24 23:34 Test 10/14/24 05:27 Range/Units Serum Glucose 76 74-106 mg/dL Labs and/or images reviewed: Labs reviewed by me, Image(s) reviewed by me Problem List/Assessment/Plan Problem List/Assessment/Plan Acute abdominal tenderness likely due to gastroenteritis, likley infectious ? Peptic ulcer disease Acute influenza B infection -CT of the abdomen showed Sigmoid colon diverticulosis without evidence of diverticulitis. Multiple nondistended fluid-filled loops of small bowel which are nonspecific but can be seen with viral enteritis. -IV bolus of NS 0.9% and continue maintenance fluids at 60cc/hr -pantoprazole 40 mg IV daily and Carafate b.i.d. -patient underwent colonoscopy more than 5 years ago at [facility] does not remember the results, EGD does not remember - IV ceftriaxone and metronidazole 10/14 - Tamiflu 75mg bid HALLIE likely due to vasomotor nephropathy Fena 0.1 Acute Hyperkalemia -Hyperkalemia protocol, repeat potassium levels -creatinine downtrending -continue maintenance fluids at 60cc/hr Non infected diabetic ulcer on left foot Type 2 diabetes mellitus - A1C 6.9 -Restart gabapentin 300mg daily -Start mild sliding scale insulin, monitor BG closely -Wound consult, for non infected diabetic ulcer of the left foot Peripheral Arterial Disease - IV Lower extremity arterial duplex ordered - cont ASA and Atorvastatin Primary hypertension HTN urgency -Restart amlodipine 5mg and lisinopril 20mg daily Dyslipidemia -atorvastatin 40 mg daily History of TAVR four months ago -Restart aspirin and clopidogrel -Start atorvastatin 40mg daily Lovenox 40 mg sc daily Plan discussed with patient in which all questions have been answered Goals of care discussed with the patient for more than 20 minute full code status Case discussed with Dr. Abdi Plan discussed with: Patient SORAYA RAMIREZ RESIDENT Oct 14, 2024 06:54
[2024-10-14 07:30] VITALS: PULSE 55; RESP 12; O2SAT 94
[2024-10-14 07:51] LABS: Protein, Urine 18.4 mg/dL (1-14)
[2024-10-14 07:54] LABS: Creatinine, Urine 172.47 mg/dL (30.0-125.0); Urine Protein/Creatinine Ratio 0.11
[2024-10-14] MEDS: amLODIPine BESYLATE 5 MG TAB PO SCH (10:00)
[2024-10-14] MEDS: PANTOPRAZOLE 40 MG/10 ML VIAL INJ IV SCH (10:15)
[2024-10-14] MEDS: LISINOPRIL 20 MG TAB PO SCH (10:16)
[2024-10-14] MEDS: CLOPIDOGREL BISULFATE 75 MG TAB PO SCH (10:16)
[2024-10-14] MEDS: GABAPENTIN 300 MG CAP PO ONE (10:17)
[2024-10-14] MEDS: ASPirin 81 mg TAB PO SCH (10:17)
[2024-10-14] MEDS: ENOXAPARIN SOD 40 MG/0.4 ML SYRINGE SC SCH (10:17)
[2024-10-14] MEDS: SUCRALFATE 1 GM/10 ML ORAL SUSP PO ONE (10:34)
[2024-10-14 11:22] LABS: COVID19 ANTIGEN SOFIA FIA NEGATIVE (NEGATIVE)
[2024-10-14 11:25] LABS: Rapid Influenza A Negative (Negative)
[2024-10-14 11:27] LABS: Rapid Influenza B Positive (Negative)
[2024-10-14] MEDS: metroNIDAZOLE 500MG/100ML 100 ML IV ONE (11:31)
--- NOTE | 2024-10-14 11:54 | DVH ---
BILATERAL Lower Extremity Arterial Duplex Date: 10/14/2024 10:10 AM Clinical History: Pain; R/O PAD Comparison: None Technique: Duplex Doppler evaluation including color Doppler and spectral/pulsed waveform analysis of the lower extremity arteries was performed. Finding: RIGHT: Peak systolic velocities are as follows: [employer] 159 cm/s Deep femoral 97 cm/s SFA proximal 145 cm/s SFA mid-portion 193 cm/s SFA distal 152 cm/s Popliteal 88 cm/s Posterior tibial 105 cm/s Dorsalis pedis 98 cm/s The waveforms are within normal limits. LEFT: Peak systolic velocities are as follows: [employer] 168 cm/s Deep femoral 72 cm/s SFA proximal 173 cm/s SFA mid-portion 183 cm/s SFA distal 167 cm/s Popliteal 105 cm/s Posterior tibial 90 cm/s Anterior tibial 24 cm/s Dorsalis pedis 24 cm/s The waveforms are within normal limits. REFERENCE VALUES, [facility]) vascular Imaging Lab Criteria: Peak systolic velocity ranges (in cm/sec) are as follows: <150 cm/s - <20 % stenosis 150-200 cm/s - 20-49% stenosis 200-300 cm/s - 50-75% stenosis >300 cm/s -> 75% stenosis There is atherosclerotic vascular disease bilateral lower extremities. IMPRESSION: Approximately 30-49% stenosis of the right common femoral artery, right mid superficial femoral arter y, right distal superficial femoral artery, left common femoral artery, left proximal superficial fem oral artery, left distal superficial femoral artery.
[2024-10-14] MEDS: OSELTAMIVIR 75 MG CAP PO ONE (13:07)
[2024-10-14] MEDS: cefTRIAXone 1GM/50ML D5W 50 ML IV ONE (13:45)
[2024-10-14 16:00] VITALS: BP 127/55; PULSE 61; RESP 16; TEMP 97.5; O2SAT 95
--- NOTE | 2024-10-14 17:12 | DVHDSRES ---
Discharge Summary Date of Admission Resident Creating Document: SORAYA RAMIREZ RESIDENT Oct 14, 2024 at 01:06 Date of Discharge: Oct 14, 2024 Labs/Diagnostic Data: Laboratory Results Test 10/14/24 10:45 10/14/24 07:23 10/14/24 05:27 10/14/24 01:23 Influenza Type A Antigen Negative (Negative) Influenza Type B Antigen Positive (Negative) SARS-CoV-2 Antigen (Rapid) Negative (NEGATIVE) POC Glucose 73 mg/dl (70-106) Sodium Level 143 mmol/L (136-145) Potassium Level 4.1 mmol/L (3.5-5.1) Chloride Level 108 mmol/L (98-107) Carbon Dioxide Level 26 mmol/L (20-31) Anion Gap 9 (5-15) Blood Urea Nitrogen 20 mg/dL (9-23) Creatinine 1.23 mg/dL (0.700-1.30) Glomerular Filtration Rate Calc 64 mL/min (>90) BUN/Creatinine Ratio 16.3 (10.0-20.0) Serum Glucose 76 mg/dL (74-106) Calcium Level 9.9 mg/dL (8.7-10.4) Magnesium Level 2.1 mg/dL (1.6-2.6) Vitamin B12 Level 569 pg/mL (211-911) Vitamin D 25-Hydroxy 61.7 ng/mL (30.0-100) Lactic Acid Level 1.4 mmol/L (0.4-2.0) Test 10/13/24 23:34 10/13/24 23:20 White Blood Count 8.1 10^3/uL (4.4-10.8) Red Blood Count 4.83 10^6/uL (4.5-5.90) Hemoglobin 15.1 g/dL (13.5-17.5) Hematocrit 44.3 % (41.0-53.0) Mean Corpuscular Volume 91.6 fL (80.0-100.0) Mean Corpuscular Hemoglobin 31.3 pg (28.0-32.0) Mean Corpuscular Hemoglobin Concent 34.1 g/dL (32.0-36.0) Red Cell Distribution Width 13.9 % (11.8-14.3) Platelet Count 196 10^3/uL (140-450) Mean Platelet Volume 8.7 fL (6.9-10.8) Neutrophils (%) (Auto) 82.1 % (37.0-80.0) Lymphocytes (%) (Auto) 11.7 % (10.0-50.0) Monocytes (%) (Auto) 5.7 % (0.0-12.0) Eosinophils (%) (Auto) 0.4 % (0.0-7.0) Basophils (%) (Auto) 0.1 % (0.0-2.0) Neutrophils # (Auto) 6.7 10 ^3/uL (1.6-8.6) Lymphocytes # (Auto) 0.9 10 ^3/uL (0.4-5.4) Monocytes # (Auto) 0.5 10 ^3/uL (0-1.3) Eosinophils # (Auto) 0 10 ^3/uL (0-0.8) Basophils # (Auto) 0 10 ^3/uL (0-0.2) Nucleated Red Blood Cells 0.1 % Hemoglobin A1c 6.9 % A1C (<5.7) Total Bilirubin 0.4 mg/dL (0.2-1.0) Aspartate Amino Transferase (AST) 15 U/L (13-40) Alanine Aminotransferase (ALT) 15 U/L (7-40) Alkaline Phosphatase 97 U/L (46-116) Troponin I High Sensitivity 5 ng/L (</=54) Total Protein 8.4 g/dL (5.7-8.2) Albumin 5.2 g/dL (3.2-4.8) Triglycerides Level 115 mg/dL (< 150) Cholesterol Level 150 mg/dL (< 200) LDL Cholesterol 79 mg/dL (< 100) HDL Cholesterol 54 mg/dL (40-59) Urine Color Yellow (Yellow) Urine Clarity Clear (Clear) Urine pH 5.5 (5.0-9.0) Urine Specific [place] 1.032 (1.001-1.035) Urine Protein Trace (Negative) Urine Ketones Negative (Negative) Urine Blood Negative /uL (Negative) Urine Nitrite Negative (Negative) Urine Bilirubin Negative (Negative) Urine Urobilinogen Normal mg/dL (Negative) Urine Leukocyte Esterase Negative /uL (Negative) Urine RBC <1 /hpf (0 - 3) Urine Microscopic WBC < 1 /HPF (0-3) Urine Squamous Epithelial Cells None seen /hpf (<5) Urine Bacteria None seen /hpf (None Seen) Urine Hyaline Casts Few /lpf (0 - 2) Urine Creatinine 172.47 mg/dL (30.0-125.0) Urine Microalbumin 49.0 mg/L (<30.0) Urine Protein/Creatinine Ratio 0.11 Urine Sodium < 10 mmol/L (40-220) Urine Glucose 4+ mg/dL (Normal) Urine Total Protein 18.4 mg/dL (1-14) Urine Opiates Screen Neg (NEGATIVE) Urine Fentanyl Screen Neg (NEGATIVE) Urine Barbiturates Screen Neg (NEGATIVE) Urine Phencyclidine Screen Neg (NEGATIVE) Urine Amphetamines Screen Neg (NEGATIVE) Urine Benzodiazepines Screen Neg (NEGATIVE) Urine Cocaine Screen Neg (NEGATIVE) Urine Cannabinoids Screen Pos (NEGATIVE) Other Laboratory Tests 10/14/24 05:27 10/13/24 23:34 Brief Hx & Hospital Course: This is a 69-year-old male with past medical history of type 2 diabetes mellitus, hypertension, TAVR 4 months ago, dyslipidemia who presented to the ED with chief complaint of abdominal tenderness. The patient states that has been having abdominal pain for the last week associated with nausea and diarrhea (last episode two days ago). The patient describes a dull periumbilical pain localized in the periumbilical and epigastric region with no specific pattern of radiation. The patient is currently rates the pain as a 5/10 on the pain scale that varies in intensity. The patient also reported seeing minimal blood in the stools three weeks ago. The patient denies chest pain, shortness of breath, fever/chills or any other associated symptoms. Initial labs showed mild hyperkalemia, creatinine was elevated at 1.58 and BUN 19. Urinalysis came back negative and CT scan of the abdomen showed possible viral enteritis. We will start the patient on IV fluids, sliding scale insulin, treatment for hyperkalemia and we will admit the patient for further assessment and management. Past medical history: Type 2 diabetes mellitus, hypertension, TAVR four months ago, dyslipidemia Home medications: Lisinopril 20 mg daily, amlodipine 5 mg daily, aspirin 81 mg daily gabapentin 300 mg daily, Plavix 75 mg daily, pioglitazone 30 mg daily, glipizide 5 mg daily, Jardiance 25 mg daily, metformin 1000 mg b.i.d., Prozac 10 mg daily. Social history: Reports quitting smoking long time ago, occasional alcohol and denies drug consumption Surgical history: TAVR 4 months ago During hospital evaluation, CT of the abdomen showed Sigmoid colon diverticulosis without evidence of diverticulitis. Multiple nondistended fluid- filled loops of small bowel which are nonspecific but can be seen with viral enteritis. Patient received IV fluids, IV antibiotics, Tamiflu given influenza B infection. Patient's blood pressure was controlled with the help of amlodipine and lisinopril. Hyperkalemia protocol was given, potassium trended down, creatinine trending down with the help of IV fluids. FENA was on 0.1. Patient left AMA during medical evaluation. Condition at Discharge: Undetermined Final Diagnosis/Problems List Acute abdominal tenderness likely due to gastroenteritis, likley infectious ? Peptic ulcer disease Acute influenza B infection Primary hypertension HTN urgency HALLIE likely due to vasomotor nephropathy Fena 0.1 Acute Hyperkalemia Non infected diabetic ulcer on left foot Type 2 diabetes mellitus - A1C 6.9 Peripheral Arterial Disease Dyslipidemia Discharge Disposition: AMA Discharge Statement: "Patient was advised to return to the ER or call 911 if any headaches, dizziness, shortness of breath, chest pain, abdominal pain, bleeding, fevers, or worsening of medical condition. Patient was counseled about treatment plan, medications, possible side effects, patientverbalized understanding. All questions were answered to the best of my ability. This discharge took greater then 30 minutes in planning, reviewing documentation, counseling the patient, and discussing with other team members." ASSESSMENT ASSESSMENT Assessment SORAYA RAMIREZ RESIDENT Oct 14, 2024 17:12
[2024-10-14] MEDS ORDERED: OSELTAMIVIR 75 MG CAP PO SCH (22:00)
[2024-10-14] MEDS ORDERED: SUCRALFATE 1 GM/10 ML ORAL SUSP PO SCH (22:00)
[2024-10-14] MEDS ORDERED: metroNIDAZOLE 500MG/100ML 100 ML IV SCH (22:00)
[2024-10-15] MEDS ORDERED: cefTRIAXone 1GM/50ML D5W 50 ML IV SCH (09:00)
== END 2024-10-14 16:21 | disposition left against medical advice (07) | DRG 391 ==
LOC: ER 22:02 → OVERFLOW 10-14 01:06
PROVIDERS: ADMIT Student in an Organized Health Care Education/Training Program; ATTEND Student in an Organized Health Care Education/Training Program
DX: A09 Infectious gastroenteritis and colitis, unspecified (principal); N17.0 Acute kidney failure with tubular necrosis; J10.1 Influenza due to other identified influenza virus with other respiratory manifestations; E78.5 Hyperlipidemia, unspecified; Z53.29 Procedure and treatment not carried out because of patient's decision for other reasons; E87.5 Hyperkalemia; E11.621 Type 2 diabetes mellitus with foot ulcer; I16.0 Hypertensive urgency; I48.91 Unspecified atrial fibrillation; K57.30 Diverticulosis of large intestine without perforation or abscess without bleeding; E11.51 Type 2 diabetes mellitus with diabetic peripheral angiopathy without gangrene; K27.9 Peptic ulcer, site unspecified, unspecified as acute or chronic, without hemorrhage or perforation; Z79.899 Other long term (current) drug therapy; Z79.82 Long term (current) use of aspirin; Z87.891 Personal history of nicotine dependence; Z95.2 Presence of prosthetic heart valve
CPT/HCPCS: 36415; 71045; 80048; 80053; 80061; 80307; 81001; 82043; 82306; 82570; 82607; 82962; 83036; 83605; 83735; 84156; 84300; 84484; 85025; 87426; 87804; 93925; 99291; G0378; J1815; J2405; J2470; J3490